=== PATIENT | female | born 1950 | race Caucasian/White ===

== ENCOUNTER 2025-03-19 18:55 | Emergency (ER) | payer MEDICARE ==
[2025-03-19] MEDS ORDERED: Bacitracin 1 PK ONE (21:32)
== END 2025-03-19 21:43 | disposition home or self-care (01) ==
LOC: ERS 18:55
DX: S80.11XA Contusion of right lower leg, initial encounter (principal); E11.9 Type 2 diabetes mellitus without complications; I10 Essential (primary) hypertension; J44.1 Chronic obstructive pulmonary disease with (acute) exacerbation; V69.9XXA Occupant (driver) (passenger) of heavy transport vehicle injured in unspecified traffic accident, initial encounter
CPT/HCPCS: 99284